=== PATIENT | male | born 1955 | race Caucasian/White ===

== ENCOUNTER 2018-01-17 17:08 | Inpatient (IN) | payer BC ==
[~2018-01-17] VITALS: Ht 177.8 cm; Wt 91.6 kg
[2018-01-17 17:15] VITALS: BP_SYST 128
[2018-01-17] MEDS ORDERED: NACL 0.9% 1,000 ML IV ONE ×2 (17:34→20:30)
[2018-01-17 17:41] LABS: BILIRUBIN,URINE 3+ (NEGATIVE); BLOOD, URINE NEGATIVE (NEGATIVE); CLARITY/URINE CLEAR (CLEAR); COLOR,URINE YELLOW (YELLOW); GLUCOSE,URINE TRACE (NEGATIVE); KETONES,URINE TRACE (NEGATIVE); LEUKOCYTE ESTERASE ,URINE NEGATIVE (NEGATIVE); NITRITE, URINE NEGATIVE (NEGATIVE); PH,URINE 5.5 (5.0-8.0); PROTEIN URINE 1+ (NEGATIVE)
[2018-01-17 17:48] LABS: BACTERIA,URINE MODERATE /HPF (None Seen); FINE GRANULAR CASTS,URINE 0-10 /LPF (None Seen); RBC,URINE 0-3 /HPF (0-3)
--- NOTE | 2018-01-17 17:49 | NUR ---
Patient to ER bed 02 to gown for evaluation. Side rails up.
[2018-01-17 17:55] LABS: MEAN CORPUSCULAR HEMOGLOBIN 31 pg (27-31); MEAN CORPUSCULAR VOLUME 90 fL (79.0-98.0)
--- NOTE | 2018-01-17 17:55 | NUR ---
Pt presents to ER c/o RUQ abdominal pain 4/10 on pain scale but worsens with movement and palpation. Pt reports that pain began last Alejandro and that along with the pain he has been experiencing nausea, vomiting. Pt denies diarrhea, denies chest pain or sob. Pt in no acute distress, speaking full sentences, AOX4, ambulatory.
[2018-01-17 17:57] LABS: PLATELET COUNT (AUTO) 219 K/uL (130-430)
[2018-01-17 18:00] LABS: BASOPHILS # (AUTO) 0.1 K/uL (0.0-0.2); BASOPHILS % (AUTO) 0.5 % (0.0-2.0); EOSINOPHILS % (AUTO) 0.3 % (0.0-4.0); HEMATOCRIT 44.3 % (36-54); HEMOGLOBIN 15.3 g/dL (14.0-18.0); LYMPHOCYTES # (AUTO) 4.9 K/uL (1.0-5.5); LYMPHOCYTES % (AUTO) 32.1 % (20.5-51.5); MEAN CORPUSCULAR HGB CONC 35 % (32-36); MONOCYTES # (AUTO) 0.3 K/uL (0.0-1.0); MONOCYTES % (AUTO) 2.2 % (1.7-9.3); NEUTROPHILS # (AUTO) 10.1 K/uL (1.8-7.7); NEUTROPHILS % (AUTO) 64.9 % (40.0-70.0); RED BLOOD CELL COUNT(AUTO) 4.93 MIL/uL (4.2-6.2); WHITE BLOOD COUNT (AUTO) 15.4 K/uL (4.8-10.8)
--- NOTE | 2018-01-17 18:00 | NUR ---
# 20 gauge angiocath placed to LAC. Use of asceptic technique. Opsite placed over site. Blood return noted. Flushed with 10 cc of normal saline. No evidence of infiltration noted. Patient tolerated well.
[2018-01-17 18:07] LABS: CALCIUM 9.3 mg/dL (8.4-11.0); CREATININE 1.01 mg/dL (0.55-1.30)
[2018-01-17 18:08] LABS: PROTHROMBIN TIME 10.1 SECS (9.5-12.5)
--- NOTE | 2018-01-17 18:09 | NUR ---
Ultrasound at bedside.
[2018-01-17 18:12] LABS: ALBUMIN 3.6 g/dL (3.4-4.8)
[2018-01-17] MEDS ORDERED: metroNIDAZOLE 500 mg/NS 100 ML IV ONE (18:45)
[2018-01-17] MEDS ORDERED: PIPERACILLIN/TAZO 3.375 GM in NS 50 ML IV ONE (18:45)
[2018-01-17] MEDS ORDERED: PIPERACILLIN/TAZOBACTAM 3.375 GM/VIAL (ZOSYN) IV ONE (18:46)
--- NOTE | 2018-01-17 19:03 | NUR ---
Pt reports that he does not take any home medications.
--- NOTE | 2018-01-17 19:56 | NUR ---
End of life care decisions discussed with patient by Dr. Del Valle. Opportunity for questions and concerns addressed. Patient's code status is FULL CODE, paperwork completed and placed in chart.
--- NOTE | 2018-01-17 19:57 | NUR ---
Patient will be admitted to care of Dr. Hyde. Admitted to Telemetry unit. Will go to room 125B. Belongings list completed. Summary report printed. Report will be given at bedside.
--- NOTE | 2018-01-17 20:05 | NUR ---
Patient and asking to speak to MD. ER MD Dr. Del Valle notified.
--- NOTE | 2018-01-17 20:10 | NUR ---
Dr. Del Valle at bedside discussing plan of care to patient and .
--- NOTE | 2018-01-17 20:15 | NUR ---
Per ER MD Dr. Del Valle, patient is to wait for further ER orders to be ordered and completed before patient is transferred to Telemetry unit.
[2018-01-17] MEDS ORDERED: MORPHINE 4 MG/ML INJ. SYRINGE IVP ONE (20:30)
--- NOTE | 2018-01-17 20:48 | NUR ---
ADMISSION NOTE Received patient from ER via rojas, received report from PHAM Baker. Patient admitted with diagnosis of obstructive jaundice, acute pancreatitis, gallstones. Patient oriented to hospital routine, call light, toileting and safety-patient verbalized understanding.
[2018-01-17 20:49] VITALS: BP_SYST 157
[2018-01-17] MEDS ORDERED: LORazepam 2 MG/ML VIAL IVP PRN (21:45)
[2018-01-17] MEDS ORDERED: ONDANSETRON HCL 4 MG/2 ML VIAL IVP PRN (21:45)
[2018-01-17] MEDS ORDERED: ACETAMINOPHEN 650 MG SUPP.RECT RC PRN (21:45)
[2018-01-17] MEDS ORDERED: MORPHINE 2 MG/ML INJ. SYRINGE IVP PRN (21:45)
[2018-01-17] MEDS ORDERED: MORPHINE 4 MG/ML INJ. SYRINGE IVP PRN (21:45)
--- NOTE | 2018-01-17 21:52 | NUR ---
PHONED PAGED DR DAVID HOFFMAN FOR CLARIFICATION OF ORDERS / .
--- NOTE | 2018-01-17 21:53 | NUR ---
Paged Dr. Hyde dialed [phone], s/w Sandra.
[2018-01-17] MEDS ORDERED: LEVOFLOXACIN 500 MG/D5W 100 ML IV ONE (22:43)
[2018-01-17] MEDS ORDERED: metroNIDAZOLE 500 mg/NS 200 ML IV ONE (22:43)
[2018-01-17] MEDS ORDERED: LEVOFLOXACIN 500 MG/D5W 100 ML IV SCH (23:00)
--- NOTE | 2018-01-17 23:08 | NUR ---
Consultation Called Reason for consultation: Acute pancreatitis, gallstones, obstructed jaundice Was consult called: Y Person who has notified: Catherine Consulting Physician: Dr. Bhatti, wet cotton feeder for Ana Ledesma Senior Support Analyst Ordering Physician: Dr. Hyde
[2018-01-17] MEDS ORDERED: KCL 40 mEq in 100 mL (PREMIX) 100 ML IV ONE (23:24)
[2018-01-17] MEDS: PANTOPRAZOLE SODIUM 40 MG/VIAL (PROTONIX) IVP SCH (23:36)
[2018-01-17] MEDS: POTASSIUM CHLORIDE 10 MEQ in NACL 0.9% 1,000 ML IV SCH (23:38)
[2018-01-17] MEDS: metroNIDAZOLE 500 mg/NS 100 ML IV SCH (23:40)
--- NOTE | 2018-01-18 | NUR ---
NEW ORDERS FROM DR DAVID HOFFMAN PATIENT OK FOR ICE CHIPS , SMALL AMOUNT DURING HOSPITAL STAY .
--- NOTE | 2018-01-18 01:57 | NUR ---
LEVAQUIN 500 MG IVPB ADMINISTER ORDERED .
[2018-01-18 02:00] VITALS: BP_SYST 137
--- NOTE | 2018-01-18 02:01 | NUR ---
ZOFRAN 4 MG IVP GIVEN FOR GI UPSET & HELPFUL .
--- NOTE | 2018-01-18 02:02 | NUR ---
FLAGYL 500 MG IVP ADMINISTER ORDERED , PATIENT AWAKE ALSO ALERT AMBULATORY / .
--- NOTE | 2018-01-18 02:03 | NUR ---
OLD DRY SCABS NOTED TO LEFT FOOT AREA , PATIENT HAS STEADY GAIT .
--- NOTE | 2018-01-18 06:28 | NUR ---
PATIENT AWAKE USING BED SIDE URINAL ALERT AMBULATES , ICE CHIPS PO SMALL AMOUNT TOLERATING NO VOMITING NOTED / .
[2018-01-18 06:30] LABS: BASOPHILS # (AUTO) 0.1 K/uL (0.0-0.2); BASOPHILS % (AUTO) 0.4 % (0.0-2.0); EOSINOPHILS # (AUTO) 0.2 K/uL (0.0-0.4); EOSINOPHILS % (AUTO) 1.1 % (0.0-4.0); HEMATOCRIT 41.1 % (36-54); HEMOGLOBIN 14.1 g/dL (14.0-18.0); LYMPHOCYTES % (AUTO) 28.9 % (20.5-51.5); MEAN CORPUSCULAR HEMOGLOBIN 31 pg (27-31); MEAN CORPUSCULAR HGB CONC 34 % (32-36); MEAN CORPUSCULAR VOLUME 90 fL (79.0-98.0); MONOCYTES # (AUTO) 0.9 K/uL (0.0-1.0); MONOCYTES % (AUTO) 6.3 % (1.7-9.3); NEUTROPHILS # (AUTO) 8.8 K/uL (1.8-7.7); NEUTROPHILS % (AUTO) 63.3 % (40.0-70.0); PLATELET COUNT (AUTO) 169 K/uL (130-430); RED BLOOD CELL COUNT(AUTO) 4.55 MIL/uL (4.2-6.2)
[2018-01-18] MEDS: metroNIDAZOLE 500 mg/NS 100 ML IV SCH ×2 (06:30→14:14)
[2018-01-18 06:57] LABS: ALBUMIN 2.8 g/dL (3.4-4.8); BILIRUBIN,DIRECT 6.9 mg/dL (0.0-0.3); CALCIUM 8.6 mg/dL (8.4-11.0); CREATININE 0.9 mg/dL (0.55-1.30); POTASSIUM 3.8 mmol/L (3.5-5.1); THYROID STIMULATING HORMONE 0.75 uIu/mL (0.34-4.82); TOTAL BILIRUBIN 9.9 mg/dL (0.0-1.0)
[2018-01-18 08:06] VITALS: BP_SYST 140
--- NOTE | 2018-01-18 08:14 | NUR ---
Opening note Pt AAOx4, resting in bed, no s/s of SOB or distress, no c/o pain at this time. Reviewed care plan w/ pt including anticipation of GI consultation. Reviewed safety and call light system. Pt ambulatory but pt agrees to call for assistance as needed. Bed and safety check completed, bed in low locked position with call light within reach.
[2018-01-18] MEDS: PANTOPRAZOLE SODIUM 40 MG/VIAL (PROTONIX) IVP SCH (09:00)
[2018-01-18] MEDS ORDERED: PANTOPRAZOLE SODIUM 40 MG/VIAL (PROTONIX) IVP ONE (09:45)
--- NOTE | 2018-01-18 09:59 | NUR ---
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 Reports no pain at his time. Some itching, no notable jaundice. Will continue to monitor. Bed in low locked position, pt refuses bed alarm. call light within reach, pt agrees to use call light for assistance as needed.
[2018-01-18] MEDS: POTASSIUM CHLORIDE 10 MEQ in NACL 0.9% 1,000 ML IV SCH (10:24)
[2018-01-18 12:04] VITALS: BP_SYST 140
--- NOTE | 2018-01-18 12:06 | NUR ---
Rounding pt resting in bed, visiting with at bedside. No s/s of SOB or distress, no c/o pain or discomfort. Pt has sight increase in temperature from last measurement. Will apply ice and reassess. Bed in low locked position with call light within reach
--- NOTE | 2018-01-18 12:06 | NUR ---
DC Planning: Received call from at [facility] : he requests pt. transfer to [facility]. Informed pt. is stable and has order for transfer. The pt. requested transfer to [facility]. He has CABG in [address] Bedoya, brief writer at [facility]. Per , Dr. Beltrán at [place] will have peer to peer with dr. Hyde. The transfer is pending bed assignment and ambulance auth. Addendum: 01/18/18 at 1605 by Nidhi Ly RN Error entry WRONG PATIENT PLEASE DISREGARD THE ABOVE DOCUMENTATION.
--- NOTE | 2018-01-18 12:10 | NUR ---
DC Planning: Received call from at [facility] : he requests pt. transfer to [facility]. Informed pt. is stable and has order for transfer. Per , Dr. Beltrán at [place] will have peer to peer with dr. Hyde. The transfer is pending bed assignment and ambulance auth. Addendum: 01/18/18 at 1627 by Nidhi Ly RN LATE ENTRY: S/W pt at bedside at 1330: informed pt. about his insurance medical group and the contracted facility. The pt agreed with the transfer. Later, bernarda was requested to speak with the pt. and his /Vivian c/o about not wanting to transfer to [facility] where [facility] will send him to. Vivian stated she called [facility] before coming in. She was told that [facility] is a contracted hp. They are upset with the insurance. They wanted to change the medical group. Pt. stated he changed insurance from [employer] to [employer] to lower cost to join but he does not like the medical group. BERNARDA advised pt to call [facility] requesting to change his medical group who can provide contracted hp/md of his chosen. But for this admission the pt. has to follow his current policy. The pt and spouse made aware of his rights to refuse the transfer. He may bear financial responsible for any denied payment by his insurance.
--- NOTE | 2018-01-18 13:15 | NUR ---
Temperature reevaluation Pt temperature reevaluated and measured at 99.2
--- NOTE | 2018-01-18 13:17 | NUR ---
CM contact Talked with case management, pt requested to speak with them as he did not know he was being transferred.
--- NOTE | 2018-01-18 14:02 | NUR ---
Discharge Plan: Pt transfer has been arranged by CM. Vaughn to be transferred to [facility], bed assignment pending. [facility] ([phone]) the request was put on 'Will Call'.
--- NOTE | 2018-01-18 14:15 | NUR ---
Rounding Pt on phone, he and talking with parties involved in his transfer that is ending this afternoon to a facility that's in his network.
[2018-01-18 15:07] VITALS: BP_SYST 140
--- NOTE | 2018-01-18 16:00 | NUR ---
DC Planning:Together with Kirsty, LEARNING TECHNOLOGIST Met again with pt. and spouse/Vivian to give update about the transfer. BERNARDA spoke with at [facility] who confirmed the pt.acceptance at [place] under dr. Beltrán. The pt. will be denied payment if not transfer. BERNARDA notified dr. Hyde who requested pt transfer to network only, (not to dc for out patient f/u). The md already spoke with dr Beltrán and pt for the continuation of plan. For the final decision, the pt and spouse agreed with the transfer to [facility]. >> was notified and he will call nursing station when bed available. PHAM Iglesias made aware. >> Per PHAM Iglesias , [facility] transfer is on " will call".
[2018-01-18 16:10] VITALS: BP_SYST 138
--- NOTE | 2018-01-18 17:04 | NUR ---
DC Planning: Bed assignment to [facility]. edwar Steiner gave room #210 B, RN to report # [phone], Address : [facility]. [address], [place] [address]. >> PHAM Iglesias made aware and to give this info to pt and spouse.
--- NOTE | 2018-01-18 17:42 | NUR ---
Transportation set up for 1929 Kim called for transport, set up for 1929, pt family aware and at bedside.
--- NOTE | 2018-01-18 17:53 | NUR ---
Report called Report called to Candis NATH at [facility] [phone]. Pt chart picker time 193. Going to room 210B. RN asked to leave IV intact for transport
[2018-01-18 19:15] VITALS: BP_SYST 144
--- NOTE | 2018-01-18 19:15 | NUR ---
OPENING SHIFT NOTE patient is alert oriented x4. IV on left antecubital 20G, flushed with NS, no infiltration noted. patient aware of transfer. advised patient to call PRN. patient verbalized understanding. will continue to monitor.
--- NOTE | 2018-01-18 19:43 | NUR ---
Closing Pt care endorsed and report given to NOC shift nurse, including information for pending transfer. Pt has no s/s of SOB or distress, no c/o pain or discomfort at this time. Transfer scheduled for 1929. Bed in low locked position. ID band and telemetry box removed. Call light within reach.
--- NOTE | 2018-01-18 20:15 | NUR ---
PT TRANSFERRED Transfer packet with Transfer Orders and Medication Reconciliation form given to EMT with report. Exitcare provided. [facility] ID band removed, replaced with ID band with pt's name and . All belongings sent with patient. Patient left floor via gurney escorted by EMT in no distress.
[2018-01-19 08:10] LABS: HEPATITIS A AB, IgM Negative (Negative); HEPATITIS B CORE AB, IgM Negative (Negative); HEPATITIS B SURFACE AG Negative (Negative)
== END 2018-01-18 20:15 | disposition short-term general hospital (02) | DRG 871 ==
LOC: SED 17:08 → STU 19:58
PROVIDERS: ADMIT Internal Medicine; ATTEND Internal Medicine
DX: A41.9 Sepsis, unspecified organism (principal); K85.10 Biliary acute pancreatitis without necrosis or infection; K80.61 Calculus of gallbladder and bile duct with cholecystitis, unspecified, with obstruction; K75.9 Inflammatory liver disease, unspecified; R73.9 Hyperglycemia, unspecified; E66.9 Obesity, unspecified; Z68.29 Body mass index [BMI] 29.0-29.9, adult; Z88.2 Allergy status to sulfonamides
CPT/HCPCS: 36415; 76700-TC; 80048; 80053; 80074; 80076; 81000-TC; 82150-TC; 83605; 83690-TC; 83735-TC; 84443-TC; 85025; 85610-TC; 87040-TC; 87086; 96361; 96365; 96367; 96375; 99285; C9113; G0482; J1956; J2270; J2405; J2543; J3480; J3490; J7030